=== PATIENT | female | born 1980 | race Caucasian/White ===

== ENCOUNTER 2017-10-03 10:59 | Emergency (ER) | payer MEDICAID, OTHER ==
--- NOTE | 2017-10-03 11:42 | ERPHSYRPT ---
- History of Present Illness Time Seen by Provider: 10/03/17 11:27 Source: patient Exam Limitations: no limitations Patient Subjective Stated Complaint: Patient states she is constipated. Patient states she hasn't had a good Bowel movement for two weeks. Triage Nursing Assessment: Patient ambulating into ER. Patient complains of constipation. BS present X 4, faint. Abdomen round and firm. Patient states she is passing gas. Patient states she hasn't had a good BM for two weeks. Patient currently in a Methadone clinic for past two weeks for opiod addiction. Patient also stated she took a test last night and it was positive. Patient stated she has been vomiting and having nausea, but unsure if it due to her bowels or pregancy. Patient states her flatulence is foul smelling. Physician History: 37-year-old white female who states that she has a history of opioid addiction and is on methadone. Patient arrives with complaint that she cannot have a bowel movements for 2 weeks she states that she has been having abdominal bloating states she's been vomiting in the morning in the evenings she states that she has been taking Maribel lax and glycerin suppositories without relief. She states that she had a home test yesterday which was positive. Past medical history includes seizures, hemorrhoids, hepatitis C, anxiety, depression, miscarriage. Past surgical history includes hemorrhoids, , removal of an ovary Social history positive tobacco use. Timing/Duration: week(s) (2 weeks) Severity: moderate Modifying Factors: Improves With: other (patient is on methadone) Associated Symptoms: nausea, vomiting, abdominal pain (abdominal bloating), No shortness of breath, No heartburn, No diaphoresis, No cough, No chills, No chest pain, No fever, No headaches, No loss of appetite, No malaise, No rash, No syncope, No seizure, No weakness Allergies/Adverse Reactions: Sulfa (Sulfonamide Antibiotics) Allergy (Mild, Verified 04/01/13 13:59) Nausea and Vomiting dizziness Home Medications: Aspirin 81 mg PO DAILY 06/18/13 [History] Lorazepam [Ativan] 1 mg PO BID 06/18/13 [History] Mirtazapine 30 mg [Remeron 30 mg] 30 mg PO HS 06/18/13 [History] Quetiapine Fumarate [Seroquel] 150 mg PO HS 06/18/13 [History] Hx Tetanus, Diphtheria Vaccination/Date Given: No Hx Influenza Vaccination/Date Given: No Hx Pneumococcal Vaccination/Date Given: No Immunizations Up to Date: Yes - Review of Systems Constitutional: No Fever, No Chills Eyes: No Symptoms Ears, Nose, & Throat: No Symptoms Respiratory: No Cough, No Dyspnea Cardiac: No Chest Pain, No Edema, No Syncope Abdominal/Gastrointestinal: Abdominal Pain (abdominal bloating), Nausea, Vomiting, Constipation, No Diarrhea, No Hematemesis, No Hematochezia, No Melena , No Dysphagia, No Appetite Changes Genitourinary Symptoms: No Dysuria Musculoskeletal: No Symptoms Skin: No Rash Neurological: No Dizziness, No Focal Weakness, No Sensory Changes Psychological: No Symptoms Endocrine: No Symptoms All Other Systems: Reviewed and Negative - Past Medical History Pertinent Past Medical History: Yes Neurological History: Seizures GI Medical History: Hemorrhoids, Hepatitis Psycho-Social History: Anxiety, Depression Female Reproductive Disorders: No Pertinent History, Other Other Medical History: miscarriage - Past Surgical History Past Surgical History: Yes Gastrointestinal: Hemorrhoidectomy Female Surgical History: Section Other Surgical History: removal of ovary - Social History Smoking Status: Current every day smoker How long have you smoked: 17 years Exposure to second hand smoke: Yes Drug Use: marijuana Patient Lives Alone: No - Female History Hx Last Menstrual Period: 6 weeks ago Hx Now: Yes (Patient took test 10/02/17) - Nursing Vital Signs Nursing Vital Signs: Initial Vital Signs Temperature 99.1 F 10/03/17 11:06 Pulse Rate 91 H 10/03/17 11:06 Respiratory Rate 16 10/03/17 11:06 Blood Pressure 127/96 10/03/17 11:06 O2 Sat by Pulse Oximetry 99 10/03/17 11:06 Pain Scale Pain Intensity 5 - Physical Exam General Appearance: anxiety, other (well-developed well-nourished white female anxious) Eye Exam: PERRL/EOMI, eyes nml inspection Ears, Nose, Throat Exam: normal ENT inspection, TMs normal, pharynx normal, moist mucous membranes Neck Exam: normal inspection, non-tender, supple, full range of motion Respiratory Exam: normal breath sounds, lungs clear, No respiratory distress Cardiovascular Exam: regular rate/rhythm, normal heart sounds, normal peripheral pulses Gastrointestinal/Abdomen Exam: soft, normal bowel sounds, No tenderness, No mass Rectal Exam: normal exam, normal rectal tone Back Exam: normal inspection, normal range of motion, No CVA tenderness, No vertebral tenderness Extremity Exam: normal inspection, normal range of motion, pelvis stable Neurologic Exam: alert, oriented x 3, cooperative, 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, normal mood/affect, nml cerebellar function, nml station & gait, sensation nml, No motor deficits SpO2 Interpretation: normal (99%) SpO2: 99 Oxygen Delivery: Room Air - Course Nursing assessment & vital signs reviewed: Yes - Radiology Ultrasound Exam Pelvis Ultrasound: discussed w/radiologist (OB ultrasound transvaginal: Impression single viable intrauterine measuring 6 weeks 4 days estimated date of confinement May 25, 2018) Ordered Tests: Active Orders 24 hr Category Date Time Status OB <14 WKS 1ST GESTATION [US] Stat Exams 10/03/17 12:34 Completed AMYLASE Stat Lab 10/03/17 11:43 Completed CBC W DIFF Stat Lab 10/03/17 11:43 Completed CMP Stat Lab 10/03/17 11:43 Completed HCG QUALITATIVE,SERUM Stat Lab 10/03/17 11:43 Completed HCG, Quantitative (Inhouse) Stat Lab 10/03/17 Completed UA W/RFX UR CULTURE Stat Lab 10/03/17 Completed Urine Triage Profile Stat Lab 10/03/17 Completed Medication Summary Discontinued Medications Generic Name Dose Route Start Last Admin Trade Name Freq PRN Reason Stop Dose Admin Bisacodyl 10 mg 10/03/17 13:55 10/03/17 13:59 Dulcolax 10 Mg Supp [place] 10/03/17 13:56 10 mg STAT ONE Administration Lab/Rad Data: Laboratory Result Diagrams 10/03/17 11:43 10/03/17 11:43 Laboratory Results 10/03/17 10/03/17 10/03/17 Range/Units Unknown Unknown Unknown WBC (4.0-10.5) K/mm3 RBC (4.1-5.4) M/mm3 Hgb (12.0-16.0) gm/dl Hct (35-47) % MCV (78-100) fl MCH (26-32) pg MCHC (32-36) g/dl RDW (11.5-14.0) % Plt Count (150-450) K/mm3 MPV (6-9.5) fl Gran % (36.0-66.0) % Eos # (Auto) (0-0.5) Absolute Lymphs (auto) (1.0-4.6) Absolute Monos (auto) (0.0-1.3) Lymphocytes % (24.0-44.0) % Monocytes % (0.0-12.0) % Eosinophils % (0.00-5.0) % Basophils % (0.0-0.4) % Absolute Granulocytes (1.4-6.9) Basophils # (0-0.4) Sodium (137-145) mmol/L Potassium (3.5-5.1) mmol/L Chloride (98-107) mmol/L Carbon Dioxide (22-30) mmol/L Anion Gap (5-15) MEQ/L BUN (7-17) mg/dL Creatinine (0.52-1.04) mg/dL Estimated GFR ML/MIN Glucose (74-106) mg/dL Calcium (8.4-10.2) mg/dL Total Bilirubin (0.2-1.3) mg/dL AST (14-36) U/L ALT (0-35) U/L Alkaline Phosphatase (38-126) U/L Serum Total Protein (6.3-8.2) g/dL Albumin (3.5-5.0) g/dL Amylase (30-110) U/L Beta HCG, Quant 69508 mIU/ml Serum , Qual (Negative) Ur Collection Type Urine Color (YELLOW) Urine Appearance (CLEAR) Urine pH (5-6) Ur Specific Baker (1.005-1.025) Urine Protein (Negative) Urine Ketones (NEGATIVE) Urine Blood (0-5) Abram/ul Urine Nitrite (NEGATIVE) Urine Bilirubin (NEGATIVE) Urine Urobilinogen (0-1) mg/dL Ur Leukocyte Esterase (NEGATIVE) Urine Culture Reflexed (NO) Urine Glucose (NEGATIVE) mg/dL Urine Opiates Level NEGATIVE (NEGATIVE) Ur Methadone POSITIVE (NEGATIVE) Urine Barbiturates NEGATIVE (NEGATIVE) Ur Phencyclidine (PCP) NEGATIVE (NEGATIVE) Urine Amphetamine NEGATIVE (NEGATIVE) U Benzodiazepine Level NEGATIVE (NEGATIVE) Urine Cocaine NEGATIVE (NEGATIVE) Urine Marijuana (THC) NEGATIVE (NEGATIVE) Ur Chlamydia DNA Probe NEGATIVE Urine GC DNA Probe NEGATIVE Specimen Received 10/03/17 10/03/17 10/03/17 Range/Units Unknown 11:43 11:43 WBC (4.0-10.5) K/mm3 RBC (4.1-5.4) M/mm3 Hgb (12.0-16.0) gm/dl Hct (35-47) % MCV (78-100) fl MCH (26-32) pg MCHC (32-36) g/dl RDW (11.5-14.0) % Plt Count (150-450) K/mm3 MPV (6-9.5) fl Gran % (36.0-66.0) % Eos # (Auto) (0-0.5) Absolute Lymphs (auto) (1.0-4.6) Absolute Monos (auto) (0.0-1.3) Lymphocytes % (24.0-44.0) % Monocytes % (0.0-12.0) % Eosinophils % (0.00-5.0) % Basophils % (0.0-0.4) % Absolute Granulocytes (1.4-6.9) Basophils # (0-0.4) Sodium 136 L (137-145) mmol/L Potassium 4.2 (3.5-5.1) mmol/L Chloride 102 (98-107) mmol/L Carbon Dioxide 26 (22-30) mmol/L Anion Gap 12.4 (5-15) MEQ/L BUN 5 L (7-17) mg/dL Creatinine 0.48 L (0.52-1.04) mg/dL Estimated GFR > 60.0 ML/MIN Glucose 94 (74-106) mg/dL Calcium 9.6 (8.4-10.2) mg/dL Total Bilirubin 0.30 (0.2-1.3) mg/dL AST 21 (14-36) U/L ALT 10 (0-35) U/L Alkaline Phosphatase 68 (38-126) U/L Serum Total Protein 7.2 (6.3-8.2) g/dL Albumin 4.1 (3.5-5.0) g/dL Amylase 38 (30-110) U/L Beta HCG, Quant mIU/ml Serum , Qual POSITIVE (Negative) Ur Collection Type CCMS Urine Color YELLOW (YELLOW) Urine Appearance CLEAR (CLEAR) Urine pH 7.0 (5-6) Ur Specific Baker 1.010 (1.005-1.025) Urine Protein NEGATIVE (Negative) Urine Ketones NEGATIVE (NEGATIVE) Urine Blood NEGATIVE (0-5) Abram/ul Urine Nitrite NEGATIVE (NEGATIVE) Urine Bilirubin NEGATIVE (NEGATIVE) Urine Urobilinogen NORMAL (0-1) mg/dL Ur Leukocyte Esterase NEGATIVE (NEGATIVE) Urine Culture Reflexed NO (NO) Urine Glucose NEGATIVE (NEGATIVE) mg/dL Urine Opiates Level (NEGATIVE) Ur Methadone (NEGATIVE) Urine Barbiturates (NEGATIVE) Ur Phencyclidine (PCP) (NEGATIVE) Urine Amphetamine (NEGATIVE) U Benzodiazepine Level (NEGATIVE) Urine Cocaine (NEGATIVE) Urine Marijuana (THC) (NEGATIVE) Ur Chlamydia DNA Probe Urine GC DNA Probe Specimen Received 10-03-17 1223 10/03/17 Range/Units 11:43 WBC 9.1 (4.0-10.5) K/mm3 RBC 4.02 L (4.1-5.4) M/mm3 Hgb 12.5 (12.0-16.0) gm/dl Hct 37.2 (35-47) % MCV 92.5 (78-100) fl MCH 31.0 (26-32) pg MCHC 33.6 (32-36) g/dl RDW 14.2 H (11.5-14.0) % Plt Count 229 (150-450) K/mm3 MPV 10.2 H (6-9.5) fl Gran % 56.8 (36.0-66.0) % Eos # (Auto) 0.18 (0-0.5) Absolute Lymphs (auto) 2.96 (1.0-4.6) Absolute Monos (auto) 0.76 (0.0-1.3) Lymphocytes % 32.6 (24.0-44.0) % Monocytes % 8.4 (0.0-12.0) % Eosinophils % 2.0 (0.00-5.0) % Basophils % 0.2 (0.0-0.4) % Absolute Granulocytes 5.17 (1.4-6.9) Basophils # 0.02 (0-0.4) Sodium (137-145) mmol/L Potassium (3.5-5.1) mmol/L Chloride (98-107) mmol/L Carbon Dioxide (22-30) mmol/L Anion Gap (5-15) MEQ/L BUN (7-17) mg/dL Creatinine (0.52-1.04) mg/dL Estimated GFR ML/MIN Glucose (74-106) mg/dL Calcium (8.4-10.2) mg/dL Total Bilirubin (0.2-1.3) mg/dL AST (14-36) U/L ALT (0-35) U/L Alkaline Phosphatase (38-126) U/L Serum Total Protein (6.3-8.2) g/dL Albumin (3.5-5.0) g/dL Amylase (30-110) U/L Beta HCG, Quant mIU/ml Serum , Qual (Negative) Ur Collection Type Urine Color (YELLOW) Urine Appearance (CLEAR) Urine pH (5-6) Ur Specific Baker (1.005-1.025) Urine Protein (Negative) Urine Ketones (NEGATIVE) Urine Blood (0-5) Abram/ul Urine Nitrite (NEGATIVE) Urine Bilirubin (NEGATIVE) Urine Urobilinogen (0-1) mg/dL Ur Leukocyte Esterase (NEGATIVE) Urine Culture Reflexed (NO) Urine Glucose (NEGATIVE) mg/dL Urine Opiates Level (NEGATIVE) Ur Methadone (NEGATIVE) Urine Barbiturates (NEGATIVE) Ur Phencyclidine (PCP) (NEGATIVE) Urine Amphetamine (NEGATIVE) U Benzodiazepine Level (NEGATIVE) Urine Cocaine (NEGATIVE) Urine Marijuana (THC) (NEGATIVE) Ur Chlamydia DNA Probe Urine GC DNA Probe Specimen Received - Progress Progress: improved Progress Note: 10/03/17 13:57 37-year-old white female with history of opiate abuse in the past who is on methadone arrives with complaint of constipation for 2 weeks. Patient states that she's been having gas and bloating she also states that she noticed that she has a positive test last night. On physical examination patient the with a soft abdomen doesn't really appear to be distended. Patient with pelvic ultrasound which shows a intrauterine 6 weeks 4 days no adnexal abnormalities. GC Chlamydia are pending. I've discussed the treatment of the patient's constipation with pharmacy. Will give patient Dulcolax suppository one time. Patient will be recommended to take Colace [id number]. Patient to take clear fluids 24-48 hours. Patient will need to follow-up with ENGINE MANAGER physician or family physician. Patient does state she relates is having more discomfort from constipation. - Departure Time of Disposition: 14:31 Departure Disposition: Home Clinical Impression: Constipation Qualifiers: Constipation type: unspecified constipation type Qualified Code(s): K59.00 - Constipation, unspecified Qualifiers: Weeks of gestation: less than 8 weeks Qualified Code(s): Z3A.01 - Less than 8 weeks gestation of Condition: Fair Critical Care Time: No Referrals: JONG JIMENEZ MD [ACTIVE STAFF] - Additional Instructions: Return home. Plenty of fluids or clear fluids only 24-48 hours. OTC Colace as needed. Follow-up with your family doctor or ENGINE MANAGER physician (list) Return for acute distress or for severe symptoms.
[2017-10-03 11:52] LABS: BASOPHIL % 0.2 % (0.0-0.4); Basophil (Absolute #) 0.02 (0-0.4); Eosinophil (Absolute #) 0.18 (0-0.5); Granulocyte Absolute (ANC) 5.17 (1.4-6.9); Granulocytes % 56.8 % (36.0-66.0); Hematocrit 37.2 % (35-47); Hemoglobin 12.5 gm/dl (12.0-16.0); Lymphocyte (Absolute #) 2.96 (1.0-4.6); Lymphocytes % 32.6 % (24.0-44.0); Mean Cell Volume 92.5 fl (78-100); Mean Corpuscular Hgb Concent. 33.6 g/dl (32-36); Mean Platelet Volume 10.2 fl (6-9.5); Monocyte (Absolute #) 0.76 (0.0-1.3); Monocytes % 8.4 % (0.0-12.0); Platelet Count 229 K/mm3 (150-450); Red Blood Count 4.02 M/mm3 (4.1-5.4); Red Cell Distribution Width 14.2 % (11.5-14.0); White Blood Count 9.1 K/mm3 (4.0-10.5)
[2017-10-03 12:23] LABS: Appearance CLEAR (CLEAR); Bilirubin NEGATIVE (NEGATIVE); Blood NEGATIVE Ery/ul (0-5); Glucose NEGATIVE (NEGATIVE); Ketones NEGATIVE (NEGATIVE); Leukocyte Esterase NEGATIVE (NEGATIVE); Nitrite NEGATIVE (NEGATIVE); Protein,Urine Dip NEGATIVE (Negative); Urobilinogen NORMAL mg/dL (0-1)
[2017-10-03 12:29] LABS: ALBUMIN 4.1 g/dL (3.5-5.0); ALKALINE PHOSPHATASE 68 U/L (38-126); AMYLASE 38 U/L (30-110); ANION GAP 12.4 MEQ/L (5-15); BLOOD UREA NITROGEN 5 mg/dL (7-17); CHLORIDE 102 mmol/L (98-107); Calcium 9.6 mg/dL (8.4-10.2); Carbon Dioxide 26 mmol/L (22-30); Creatinine 1 0.48 mg/dL (0.52-1.04); Glucose 94 mg/dL (74-106); Potassium 4.2 mmol/L (3.5-5.1); SGOT/AST 21 U/L (14-36); SGPT/ALT 10 U/L (0-35); SODIUM 136 mmol/L (137-145); Total Protein 7.2 g/dL (6.3-8.2)
[2017-10-03 12:50] LABS: Amphetamine,Urine NEGATIVE (NEGATIVE); Barbiturate,Urine NEGATIVE (NEGATIVE); Benzodiazepine,Urine NEGATIVE (NEGATIVE); Cocaine,Urine NEGATIVE (NEGATIVE); Methadone,Urine POSITIVE (NEGATIVE); Opiate,Urine NEGATIVE (NEGATIVE); PCP,Urine NEGATIVE (NEGATIVE); THC,Urine NEGATIVE (NEGATIVE)
[2017-10-03 13:39] VITALS: BP 148/80
[2017-10-03 13:55] VITALS: O2SAT 99
[2017-10-03] MEDS ORDERED: Dulcolax 10 MG SUPP PR ONE (13:55)
[2017-10-03 13:59] VITALS: PULSE 89
--- NOTE | 2017-10-03 14:11 | XRAY ---
Indication: Abdominal cramping and constipation. Two-dimensional transvaginal early OB ultrasound was performed. Comparison: None for this . Uterus is anteverted with a single intrauterine gestational sac and single pole and yolk sac. The mean crown-rump length is 0.70 cm corresponding to 6 weeks 4 days. heart rate 118 BPM. No abnormal subchorionic fluid collection. Left and right ovaries are unremarkable. Impression: Single viable intrauterine measuring 6 weeks 4 days. Expected date confinement is May 25, 2018.
== END 2017-10-03 14:39 | disposition home or self-care (01) ==
LOC: ED 10:59
DX: K59.00 Constipation, unspecified (principal); R11.2 Nausea with vomiting, unspecified; Z33.1 Pregnant state, incidental; F19.11 Other psychoactive substance abuse, in remission; Z79.891 Long term (current) use of opiate analgesic; Z79.899 Other long term (current) drug therapy
CPT/HCPCS: 36415; 76801; 80053; 80307; 81002; 82150; 84702; 84703; 85025; 87491; 87591; 99284; A9270-GY